=== PATIENT | female | born 1930 | race Caucasian/White ===

== ENCOUNTER 2016-09-26 16:09 | Emergency (ER) | payer MEDICARE, OTHER ==
[~2016-09-26] VITALS: Ht 162.6 cm; Wt 54.0 kg
[~2016-09-26 16:09] MED LIST: AMAN10CA PO; CARB1TAB16 PO; CARB25TA PO; DOCU100C PO; FOLI1TAB2 PO; KEFL500C7 PO; LOSA50TA20 PO; MIDO10TA PO; MIRA33504 PO; PROP1TAB29 PO; PROT1TAB2 PO; REQU2TAB PO; SYNT50TA PO; ZOLO25TA PO
[2016-09-26] MEDS ORDERED: MEGE40TA18 PO (16:34)
[2016-09-26] MEDS ORDERED: ZYRT10CA PO (16:34)
[2016-09-26] MEDS ORDERED: MINO0.1C PO (16:34)
[2016-09-26] MEDS ORDERED: TRAZ50TA4 PO (16:34)
[2016-09-26] MEDS ORDERED: BACT800T5 PO (17:44)
[2016-09-26 18:02] VITALS: BP 139/74
== END 2016-09-26 18:04 | disposition home or self-care (01) ==
LOC: M ED 17:52
DX: N30.01 Acute cystitis with hematuria (principal); I10 Essential (primary) hypertension; G20 Parkinson's disease; E03.9 Hypothyroidism, unspecified; F32.9 Major depressive disorder, single episode, unspecified; Z86.711 Personal history of pulmonary embolism; Z86.19 Personal history of other infectious and parasitic diseases; Z90.12 Acquired absence of left breast and nipple; Z79.899 Other long term (current) drug therapy; Z88.1 Allergy status to other antibiotic agents